=== PATIENT | male | born 1985 | race Two or more races ===

== ENCOUNTER 2021-06-03 22:10 | Emergency (ER) | payer SELFPAY ==
[~2021-06-03] VITALS: Ht 182.9 cm; Wt 113.4 kg
[2021-06-03] MEDS ORDERED: NALOXONE HCL IV SCH ×2 (22:45→23:00)
[2021-06-03] MEDS ORDERED: D5W 5% IV SCH ×2 (22:45→23:00)
[2021-06-03 22:58] LABS: Basophils # (auto) 0.1 10 ^3/uL (0-0.2); Basophils % (auto) 0.8 % (0.0-2.0); Eosinophils # (auto) 0.3 10 ^3/uL (0-0.8); Eosinophils % (auto) 1.7 % (0.0-7.0); Hematocrit 46.2 % (41.0-53.0); Hemoglobin 15.9 g/dL (13.5-17.5); Lymphocytes # (auto) 9.7 10 ^3/uL (0.4-5.4); Lymphocytes % (auto) 48.7 % (10.0-50.0); Mean Corpuscular Hemoglobin 29.2 pg (28.0-32.0); Mean Corpuscular Hgb Conc. 34.3 g/dL (32.0-36.0); Mean Corpuscular Volume 85.1 fL (80.0-100.0); Monocytes # (auto) 1.1 10 ^3/uL (0-1.3); Monocytes % (auto) 5.5 % (0.0-12.0); Neutrophils # (auto) 8.6 10 ^3/uL (1.6-8.6); Neutrophils % (auto) 43.3 % (37.0-80.0); Nucleated Red Blood Cells % 0.1 %; Red Blood Cells 5.44 10^6/uL (4.5-5.90); Red Cell Distribution Width 13.4 % (11.8-14.3); White Blood Cell 19.8 10^3/uL (4.4-10.8)
[2021-06-03 23:19] LABS: Alanine Aminotransferase 34 U/L (16-61); Albumin 3.7 g/dL (3.4-5.0); Anion Gap 9 (5-15); Aspartate Aminotransferase 31 U/L (15-37); BUN/Creatinine Ratio 9.8; Blood Alcohol < 3.0 mg/dL (0-5); Blood Urea Nitrogen 11 mg/dL (7-18); Calcium 8.6 mg/dL (8.5-10.1); Carbon Dioxide 27 mmol/L (21-32); Chloride 104 mmol/L (98-107); GFR African American 95 mL/min; GFR Non-African American 78 mL/min; Glucose 164 mg/dL (74-106); Potassium 3.8 mmol/L (3.5-5.1); Salicylate 2.1 mg/dL (2.8-20.0); Sodium 140 mmol/L (136-145)
[2021-06-03 23:22] LABS: Alkaline Phosphatase 94 U/L (45-117); Bilirubin, Total 0.3 mg/dL (0.2-1.0); Total Protein 7.9 g/dL (6.4-8.2)
[2021-06-03 23:42] LABS: Acetaminophen < 2.0 ug/mL (10-30)
[2021-06-03] MEDS: NALOXONE HCL IV SCH (23:52)
[2021-06-03] MEDS: D5W 5% IV SCH (23:52)
[2021-06-04] MEDS: NALOXONE HCL IV SCH (03:15)
[2021-06-04] MEDS: D5W 5% IV SCH (03:15)
[2021-06-04] MEDS ORDERED: NALOXONE HCL 1MG/ML 2ML SYRINGE IV ONE (04:15)
[2021-06-04 06:32] VITALS: BP 108/57
== END 2021-06-04 06:30 | disposition home or self-care (01) ==
LOC: ER 22:10 → EDBD 22:10 → ER 06-04 06:30
DX: T40.2X1A Poisoning by other opioids, accidental (unintentional), initial encounter (principal); F15.10 Other stimulant abuse, uncomplicated; Y92.89 Other specified places as the place of occurrence of the external cause
CPT/HCPCS: 36415; 71045; 80053; 80320; 80329; 85025; 93005; 96365; 96366; 96376; 99285; J2310; J7060